=== PATIENT | female | born 1990 | race Two or more races ===

== ENCOUNTER 2022-12-12 21:51 | Emergency (ER) | payer MEDICAID, OTHER ==
[~2022-12-12] VITALS: Ht 165.1 cm; Wt 98.6 kg
[2022-12-12 22:06] VITALS: BP 151/73; PULSE 74; RESP 16; O2SAT 99
== END 2022-12-12 22:33 | disposition left against medical advice (07) ==
LOC: ER 21:51
DX: R20.0 Anesthesia of skin (principal); M79.642 Pain in left hand; M79.641 Pain in right hand; Z53.21 Procedure and treatment not carried out due to patient leaving prior to being seen by health care provider